=== PATIENT | female | born 1965 | race Caucasian/White ===

== ENCOUNTER 2018-01-14 09:02 | Emergency (ER) | payer OTHER ==
[~2018-01-14] VITALS: Ht 172.7 cm; Wt 56.2 kg
--- NOTE | ~2018-01-14 | EKG ---
[address] [address] [facility] [place] [address] ELECTROCARDIOGRAM REPORT Name: ÓSCAR KNOXMARYAM COTE Room #: [facility] [id number] Admission: 01/14/18 Attend Phys: Discharge: 01/14/18 Date of : 69 Report #: [id number] THIS REPORT FOR: //name// 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: [facility] : 1965 Requested By: Marie Cramer Order Number: [id number] MD: Alex Porter Measurements Intervals Zeigler Rate: 62 P: 59 OK: 152 QRS: -33 QRSD: 105 T: 8 QT: 436 QTc: 443 Interpretive Statements Sinus rhythm RSR' in V1 or V2, probably normal variant Left ventricular hypertrophy No previous ECG available for comparison Electronically Signed On 01-15-2018 7:54:08 CDT by Alex Porter [email or web address] <ELECTRONICALLY SIGNED> By: Alex Porter MD, [facility] 01/15/18 0754 0930 9 Alex Porter MD, FACC /EPI
[~2018-01-14 09:02] MED LIST: NORCO 5-325 TA1 EACH PO; NORVASC5 MG PO
[2018-01-14] MEDS ORDERED: BUTALB-APAP-CA1 EACH PO (11:05)
[2018-01-14] MEDS ORDERED: HYDROCHLOROTH12.5 M1 PO (11:05)
[2018-01-14 11:06] VITALS: BP 144/97
== END 2018-01-14 11:21 | disposition home or self-care (01) ==
LOC: ER 09:02
DX: G43.909 Migraine, unspecified, not intractable, without status migrainosus (principal); I10 Essential (primary) hypertension